=== PATIENT | female | born 1970 | race Caucasian/White ===

== ENCOUNTER → 2016-05-14 | Outpatient (CLI) | payer BC | END | disposition home or self-care (01) | LOC: PCVCIMAG 15:40 | PROVIDERS: ATTEND Internal Medicine Cardiovascular Disease | DX: I25.10 Atherosclerotic heart disease of native coronary artery without angina pectoris (principal); Z95.1 Presence of aortocoronary bypass graft; Z95.5 Presence of coronary angioplasty implant and graft | CPT/HCPCS: 93325; 93351 ==

== ENCOUNTER → 2017-09-28 | Outpatient (CLI) | payer BC, OTHER ==
[~2017-09-28] MED LIST: REGADENOSON 0.4 MG/5 ML DISP.SYRIN. IV ONE
--- NOTE | 2017-09-28 14:36 | PCVCIMAG ---
APPROVED REPORT Imaging Protocol: Rest Tc-99m/Stress Tc-99m 1 day Study performed: 09/28/2017 08:57:37 Indication: CAD, CARDIOMYOPATHY, FACTOR V LEIDEN, FATIGUE Patient Location: Out-Patient Stress Nurse: Margaret Castro RN, Carina Crouch RN [place] Tech:Jenniferclayton Menezes [facility] Ht: 5 ft 3 in Wt: 125 lbs BSA: 1.58 m2 HR: 61 bpm BP: 117/55 mmHg BMI: 22.1 Rhythm: SR Medical History Medical History: CARDIOMYOPATHY, CAD, FATIGUE, FACTOR V LEIDEN Medications: COUMADIN, XANAX, ATORVASTATIN, GABAPENTIN, LOSARTAN, METOPROLOL, KCL Allergies: PCN, SAS, VALIUM Previous Cardiac Procedures: CABG 2009 Pretest Chest Pain Characteristics: No chest pain Exercise History: Physically active Meds Held (24 hrs): METOPROLOL Resting Data Rest SPECT myocardial perfusion imaging was performed in supine position 60 minutes following the intravenous injection of 10.5 mCi of Tc-99m Sestamibi. Time of rest injection: 0800 Date: 09/28/2017 Administration Route: IV Administration Site: Left Hand Pharmacologic Stress Pharmacologic stress test was performed by injecting Regadenoson 0.4 mg IV push over 10-15 seconds immediately followed by the intravenous injection of 31.5 mCi of Tc-99m Sestamibi. Time of stress injection: 31.5 Date: 09/28/2017 Administration Route: IV Administration Site: Left Hand Gated Stress SPECT was performed 60 minutes after stress injection. The images were gated to evaluate regional wall motion and calculate left ventricular ejection fraction. Stress Test Details Stress Test: Pharmacologic stress testing performed using 0.4 mg of regadenoson per 5 mL given IV over 10 seconds and was paired with low level exercise. Reason for pharmacologic stress test: physical limitation. HRMax Heart Rate (APMHR): 172 bpm Resting HR: 61 bpmTarget HR (85% APMHR): 146 bpm Max HR Achieved: 100 bpm % of APMHR: 58 Recovery HR: 60 bpm BP Resting BP: 117/55 mmHg Recovery BP: 117/53 mmHg ECG Resting ECG: SR Stress ECG: SR/ST, Sinus Rhythm, nonspecific ST-T abnormalities ST Change: SR Arrhythmia: NONE Recovery ECG: Sinus Rhythm Clinical Reason for Termination: Completed protocol Stress Symptoms: TINGLING OVER ALL PATIENT RECOVERED WITH CAFFEINE Stress ECG Conclusion ECG: Non-ischemic Study Quality Study: Fair Study Data Post stress, the left ventricular ejection was 58%.. SSS: 9 SRS: 7 SDS: 3 TID = 1.28. 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 Small sized area of moderate reversible ischemia involving the mid inferolateral left ventricle consistent with a circumflex distribution. Wall Motion Normal left ventricular size and function with no regional wall motion abnormalities. 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 Small sized area of moderate reversible ischemia involving the mid inferolateral left ventricle consistent with a circumflex distribution. Normal left ventricular size and function with no regional wall motion abnormalities. Post stress, the left ventricular ejection was 58%. No prior study available for comparison. Interpreted by: Nathaniel Jackson MD Electronically Approved: 09/28/2017 13:43:38 <Conclusion> ECG: Non-ischemic
== END | disposition home or self-care (01) ==
LOC: PCVCIMAG 07:18
PROVIDERS: ATTEND Internal Medicine Cardiovascular Disease
DX: I25.10 Atherosclerotic heart disease of native coronary artery without angina pectoris (principal)
CPT/HCPCS: 78452; 93017; A9500; J2785

== ENCOUNTER → 2018-03-17 | Outpatient (CLI) | payer OTHER ==
--- NOTE | 2018-03-17 17:16 | PCVCIMAG ---
APPROVED REPORT Study performed: 03/17/2018 16:22:53 EXAM: Comprehensive 2D, Doppler, and color-flow Echocardiogram Patient Location: Echo lab Status: routine BSA: 1.61 HR: 74 bpmBP: 90/60 mmHg Rhythm: NSR Other Information Study Quality: Adequate Indications CAD Cardiomyopathy Chest Pain cabg 2D Dimensions IVSd: 5.59 (7-11mm) LVDd: 54.38 mm PWd: 5.35 (7-11mm) LVDs: 42.90 (25-40mm) Left Atrium: 36.88 (27-40mm) Aortic Root: 28.78 mm LV Single Plane 4CH: 51.43 % LV Single Plane 2CH: 50.78 % Biplane EF: 50.2 % Volumes Left Atrial Volume (Systole) Single Plane 4CH: 43.45 mLSingle Plane 2CH: 57.87 mL LA ESV Index: 34.00 mL/m2 Aortic Valve AoV Peak Bo.: 1.25 m/s AO Peak Gr.: 6.25 mmHgLVOT Max P.11 mmHg LVOT Max V: 1.01 m/s Mitral Valve IVRT: 69.20 ms Pulmonary Valve PV Peak Bo.: 0.97 m/sPV Peak Gr.: 3.79 mmHg Pulmonary Vein P Vein S: 0.39 m/sP Vein A: 0.42 m/s P Vein D: 0.57 m/sP Vein A Dur.: 162.6 msec P Vein S/D Ratio: 0.68 Tricuspid Valve TR Peak Bo.: 2.52 m/s TR Peak Gr.: 25.47 mmHg TV Vmax: 0.59 m/s Left Ventricle The left ventricle is normal size. There is normal LV segmental wall motion. There is normal left ventricular wall thickness. Left ventricular systolic function is normal. The left ventricular ejection fraction is within the normal range. LVEF is 45-50%.mild ant apical hypokinesis The left ventricular diastolic function is normal. Right Ventricle The right ventricle is normal size. The right ventricular systolic function is normal. Atria The left atrium size is normal. The right atrium size is normal. Aortic Valve The aortic valve is normal in structure. No aortic regurgitation is present. There is no aortic valvular stenosis. Mitral Valve The mitral valve is normal in structure. Mild mitral regurgitation. No evidence of mitral valve stenosis. Tricuspid Valve The tricuspid valve is normal in structure. Mild tricuspid regurgitation with PAP of 32 mmHg. Pulmonic Valve The pulmonary valve is normal in structure. Trace pulmonic regurgitation. Great Vessels The aortic root is normal in size. IVC is normal in size and collapses >50% with inspiration. Pericardium There is no pericardial effusion. There is no pleural effusion. <Conclusion> The left ventricle is normal size. LVEF is 45-50%.mild ant apical hypokinesis The right ventricle is normal size. The left atrium size is normal. The left atrium size is normal. The aortic valve is normal in structure. There is no aortic valvular stenosis. Mild mitral regurgitation. Mild mitral regurgitation. Mild tricuspid regurgitation with PAP of 32 mmHg. The aortic root is normal in size. There is no pericardial effusion.
--- NOTE | 2018-03-17 21:49 | PCVCIMAG ---
EXAM: ABDOMINAL ULTRASOUND COMPLETE INDICATION: Abdominal pain FINDINGS: Gallbladder: No gallstones. No wall thickening or abnormal pericholecystic fluid. Gallbladder is somewhat small and contracted. Liver: Normal in size measuring 13.4 cm in length. No focal masses. Bile ducts: No intra or extra hepatic bile duct dilatation. The common bile duct measures 4.5 mm. Pancreas: Unremarkable where seen. Spleen: Normal in size measuring 9.8 cm in greatest dimension. No focal masses. Right kidney: No hydronephrosis. Length measures 9.0 cm. Left kidney: No hydronephrosis. Length measures 9.0 cm. Inferior vena cava: Normal in size where seen. Aorta: Normal in caliber where seen. IMPRESSION: Gallbladder is somewhat small and contracted. Abdomen otherwise unremarkable. No evidence of cholelithiasis. LOC:OFFICE
== END | disposition home or self-care (01) ==
LOC: PCVCIMAG 16:24
PROVIDERS: ATTEND Internal Medicine Cardiovascular Disease
DX: I08.1 Rheumatic disorders of both mitral and tricuspid valves (principal); R07.9 Chest pain, unspecified; I25.10 Atherosclerotic heart disease of native coronary artery without angina pectoris; I42.9 Cardiomyopathy, unspecified; R09.89 Other specified symptoms and signs involving the circulatory and respiratory systems; I10 Essential (primary) hypertension; R10.9 Unspecified abdominal pain; Z95.1 Presence of aortocoronary bypass graft
CPT/HCPCS: 76700; 93306

== ENCOUNTER → 2019-02-11 | Outpatient (CLI) | payer OTHER ==
--- NOTE | 2019-02-11 14:54 | PCVCIMAG ---
APPROVED REPORT Study performed: 02/11/2019 12:30:09 Exam: Stress Echocardiogram Indication: CAD s/p CABG, CAD s/p PCI, dyspnea, htn Patient Location: Echo lab Stress Nurse: Carina Crouch RN Status: routine Ht: 5 ft 3 in HR: 55 bpm BP: 90/60 mmHg Rhythm: Bradycardia Procedure The patient underwent an Exercise Stress Test using the Delta Protocol. Blood pressure, heart rate, and EKG were monitored. An Echocardiogram was performed by all terrain vehicle technician in four stages in quad fashion. At peak stress, four selected images were obtained and placed side by side with resting images for comparison. Stress Test Details Stress Test: Exercise stress testing was performed using a Delta protocol. HR Resting HR: 55 bpmMax Heart Rate (APMHR): 170 bpm Max HR Achieved: 144 bpmTarget HR (85% APMHR): 144 bpm % of APMHR: 84 Recovery HR: 70 bpm HR response to stress: Normal HR response to stress BP Resting BP: 90/60 mmHg Max BP: 136/54 mmHg Recovery BP: 108/56 mmHg BP response to stress: Normal blood pressure response to stress. ECG Resting ECG: Sinus Bradycardia Stress ECG: Sinus Rhythm ST Change: Normal Arrhythmia: isolated PVCs Recovery ECG: Sinus Rhythm Recovery ST Change: Normal Recovery Arrhythmia: isolated PVCs that resolved to NSR Clinical Reason for Termination: Maximal effort Stress Symptoms: Dyspnea Exercise duration: 9 min 36 sec Highest Stage Achieved: Stage 4: 4.2 mph at 16% grade. Exercise capacity: 12 METs Overall Exercise Capacity for Age: Normal Scale: Active Angina Score: None Pre-Stress Echo The resting Echocardiogram showed normal left ventricular contractility with an estimated Ejection Fraction of about 45%. Fixed septal hypokinesis. Post-Stress Echo The stress Echocardiogram showed normal left ventricular contractility with an estimated Ejection Fraction of about 55%. Fixed septal hypokinesis. Clinical No clinical or ECG evidence for ischemia. Conclusion Clinical Response: Non-ischemic Exercise Capacity: Average Stress ECG Response: Non-ischemic Stress Echo Images: Non-ischemic The left ventricle is normal in size and wall thickness in both the rest and stress images. Mild mitral regurgitation. Mild tricuspid regurgitation with PAP of 34 mmHg. Normal aortic and pulmonic valves. Other Information Study Quality: Adequate <Conclusion> The left ventricle is normal in size and wall thickness in both the rest and stress images. Mild mitral regurgitation. Mild tricuspid regurgitation with PAP of 34 mmHg. Normal aortic and pulmonic valves.
== END | disposition home or self-care (01) ==
LOC: PCVCIMAG 12:18
PROVIDERS: ATTEND Internal Medicine Cardiovascular Disease
DX: I08.1 Rheumatic disorders of both mitral and tricuspid valves (principal); I25.10 Atherosclerotic heart disease of native coronary artery without angina pectoris; Z95.5 Presence of coronary angioplasty implant and graft; Z95.1 Presence of aortocoronary bypass graft
CPT/HCPCS: 93325; 93351